=== PATIENT | male | born 1945 | race Caucasian/White ===

== ENCOUNTER 2017-04-29 09:40 | Inpatient (IN) | payer MEDICARE, OTHER ==
[~2017-04-29] VITALS: Ht 167.6 cm; Wt 72.6 kg
--- NOTE | 2017-04-29 09:50 | NUR ---
BIB RA, FOR SEIZURE WITNESSED BY BYSTANDERS. A/A/O. CHANGED TOP GOWN. SIDE RAISL UP. HOB ELEVATED. CONNECTED TO MONITOR. AWAITING EVALUATION BY ER PROVIDER.
[2017-04-29] MEDS ORDERED: PHEN100C4 PO (10:19)
[2017-04-29] MEDS ORDERED: ASPI-1169 PO (10:19)
[2017-04-29 10:26] LABS: BASOPHILS % (AUTO) 0.5 % (0.0-2.0); EOSINOPHILS % (AUTO) 0.9 % (0.0-6.0); HEMATOCRIT 42 % (39-51); HEMOGLOBIN 14.4 g/dL (13.5-17.5); LYMPHOCYTES # (AUTO) 1.3 /CMM (0.8-4.8); LYMPHOCYTES % (AUTO) 26.9 % (20.0-44.0); MEAN CORPUSCULAR HEMOGLOBIN 36 PG (26.0-33.0); MEAN CORPUSCULAR HGB CONC 35 g/dl (31.0-36.0); MEAN CORPUSCULAR VOLUME 104 fL (80-96); MONOCYTES # (AUTO) 0.4 /CMM (0.1-1.30); MONOCYTES % (AUTO) 8.6 % (2.0-12.0); NEUTROPHILS % (AUTO) 63.1 % (43.0-81.0); PLATELET COUNT (AUTO) 158 /CMM (150-450); RDW COEFFICIENT OF VARIATION 13.9 (11.5-15.0); RED BLOOD CELL COUNT(AUTO) 4.01 MIL/uL (4.5-6.0); WHITE BLOOD COUNT (AUTO) 4.8 K/uL (4.3-11.0)
--- NOTE | 2017-04-29 10:35 | NUR ---
URINE COLELCTED AND SEND TO LAB
[2017-04-29 10:38] LABS: INR 0.94 (0.87-1.13)
[2017-04-29 10:41] LABS: CALCIUM, SERUM 8.6 mg/dL (8.5-10.1); CARBON DIOXIDE 27 mmol/L (21-32); CHLORIDE 103 mmol/L (98-107); CREATININE 0.7 mg/dL (0.6-1.3); GLUCOSE 152 mg/dL (74-106); POTASSIUM 3.8 mmol/L (3.5-5.1); SODIUM SERUM 138 mmol/L (136-145); UREA NITROGEN, BLOOD 8 mg/dL (7-18)
[2017-04-29 10:47] LABS: ALANINE AMINOTRANSFERASE 28 U/L (12-78); ALKALINE PHOSPHATASE 94 U/L (46-116); ASPARTATE AMINOTRANSFERASE 29 U/L (15-37); BILIRUBIN,DIRECT 0.1 mg/dL (0.0-0.2); BILIRUBIN,TOTAL 0.4 mg/dL (0.2-1.0); TOTAL PROTEIN, SERUM 7.8 g/dL (6.4-8.2)
[2017-04-29 10:48] LABS: ACETAMINOPHEN < 2 ug/ml (10-30); ALCOHOL, BLOOD < 3 mg/dL (0-0); SALICYLATE 1.4 mg/dL (2.8-20.0)
[2017-04-29 10:58] LABS: APPEARANCE,URINE CLEAR (CLEAR); BILIRUBIN,URINE NEGATIVE (NEGATIVE); BLOOD, URINE TRACE-INTA Ery/uL (NEGATIVE); COLOR,URINE YELLOW (YELLOW); KETONES,URINE TRACE (NEGATIVE); LEUKOCYTE ESTERASE ,URINE NEGATIVE (NEGATIVE); NITRITE, URINE NEGATIVE (NEGATIVE); PROTEIN,URINE NEGATIVE (NEGATIVE); UGLUCOSE NEGATIVE (NEGATIVE); UROBILINOGEN,URINE 0.2 EU/dL (0.2)
[2017-04-29 11:01] LABS: BACTERIA,URINE None seen /HPF (None Seen); RBC,URINE 0-2 /HPF (0-2); WBC,URINE NONE SEEN /HPF (0-3)
[2017-04-29 11:02] LABS: SQUAMOUS EPITHELIAL CELL,UR Few /HPF (None Seen)
--- NOTE | 2017-04-29 12:07 | NUR ---
CALLED NETWORK SERVICES PROJECT MANAGER
--- NOTE | 2017-04-29 12:20 | NUR ---
Patient is resting comfortably in bed with eyes closed. Easily aroused. VSS
[2017-04-29] MEDS ORDERED: LORAZEPAM 1 MG TABLET ONE (13:26)
[2017-04-29] MEDS ORDERED: LORAZEPAM 1 MG TABLET PO ONE (13:30)
--- NOTE | 2017-04-29 13:33 | NUR ---
ART SUPERVISOR PILE DRIVING AT BEDSIDE FOR EVAL
--- NOTE | 2017-04-29 14:25 | NUR ---
Patient is resting comfortably in bed with eyes closed. Easily aroused. VSS
--- NOTE | 2017-04-29 14:53 | NUR ---
REPORT GIVEN TO RAJNI AVINA ROOM 211
--- NOTE | 2017-04-29 14:56 | NUR ---
IV removed. Catheter intact and site benign. Pressure and 4x4 applied to site. No bleeding noted.
[2017-04-29] MEDS ORDERED: TEMAZEPAM 7.5 MG CAPSULE PO PRN (15:30)
[2017-04-29] MEDS ORDERED: LORAZEPAM 0.5 MG TABLET PO PRN (15:30)
[2017-04-29] MEDS ORDERED: MAG HYDROX/AL HYDROX/SIMETH 30 ML UDC PO PRN (15:30)
[2017-04-29] MEDS ORDERED: MAGNESIUM HYDROXIDE 30 ML UDC PO PRN (15:30)
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
[2017-04-29 15:52] VITALS: BP 145/103
[2017-04-29 15:55] VITALS: BP 145/97
[2017-04-29 16:40] VITALS: BP 145/97
[2017-04-29] MEDS: PHENYTOIN EXTENDED RELEASE 100 MG CAPSULE PO SCH (16:56)
[2017-04-29 19:48] VITALS: BP 113/72
[2017-04-29 20:00] VITALS: BP 113/72
[2017-04-30 07:57] LABS: PHENYTOIN (DILANTIN) 3.8 ug/ml (10.0-20.0)
[2017-04-30 08:00] VITALS: BP 124/89
[2017-04-30 08:08] LABS: ALANINE AMINOTRANSFERASE 27 U/L (12-78); ALBUMIN 3.9 g/dL (3.4-5.0); ALKALINE PHOSPHATASE 93 U/L (46-116); ASPARTATE AMINOTRANSFERASE 26 U/L (15-37); BILIRUBIN,TOTAL 0.7 mg/dL (0.2-1.0); CALCIUM, SERUM 8.8 mg/dL (8.5-10.1); CARBON DIOXIDE 27 mmol/L (21-32); CHLORIDE 103 mmol/L (98-107); CREATININE 0.7 mg/dL (0.6-1.3); GLUCOSE 97 mg/dL (74-106); POTASSIUM 4.1 mmol/L (3.5-5.1); SODIUM SERUM 140 mmol/L (136-145); TOTAL PROTEIN, SERUM 7.7 g/dL (6.4-8.2); UREA NITROGEN, BLOOD 11 mg/dL (7-18)
[2017-04-30 08:47] LABS: CHOLESTEROL 287 mg/dL (<200); HDL CHOLESTEROL 156 mg/dL (40-60); LDL 122 mg/dL (0-99); TRIGLYCERIDES 85 mg/dL (30-150)
[2017-04-30] MEDS: PHENYTOIN EXTENDED RELEASE 100 MG CAPSULE PO SCH ×3 (08:56→17:02)
[2017-04-30] MEDS: ASPIRIN 81 MG TAB.CHEW PO SCH (08:57)
--- NOTE | 2017-04-30 10:03 | NUR ---
DR. SANCHEZ ORDERED PET TEAM, PT. WANT TO BE DISCHARGED. KENYA FROM INTAKE NOTIFIED AND SHE WILL CALL THE CLINICIAN TO EVALUATE THE PT.
[2017-04-30] MEDS ORDERED: clonazePAM 0.5 MG TABLET PO PRN (11:00)
--- NOTE | 2017-04-30 12:31 | NUR ---
PT. IS ON [address] NOW [address] SANCHEZ MADE AWARE.
--- NOTE | 2017-04-30 12:37 | NUR ---
Initial Discharge Plan: [place] [address] [facility] [address] by himself. Pt is in a low income residence. Pts # is . Pt would like to return home upon discharge. SW spoke to pts daughter, Marisol for discharge planning purposes. Pts daughter agreed to pick pt up and transport him to his home once he is ready for discharge. Pts daughter also agreed to a higher level of care (i.e. SNF) however stated, "My father is stubborn and probably won't go for the idea." SW will follow up and help pt form a safe and proper discharge.
[2017-04-30] MEDS: NEOMY SULF/BACITRAC ZN/POLY 15 GM TUBE TP SCH (13:03)
[2017-04-30 15:39] VITALS: BP 126/77
[2017-04-30] MEDS: ACETAMINOPHEN 325 MG TABLET PO PRN (18:38)
[2017-04-30 18:57] LABS: APPEARANCE,URINE CLEAR (CLEAR); BILIRUBIN,URINE NEGATIVE (NEGATIVE); BLOOD, URINE NEGATIVE Ery/uL (NEGATIVE); COLOR,URINE YELLOW (YELLOW); KETONES,URINE NEGATIVE (NEGATIVE); LEUKOCYTE ESTERASE ,URINE NEGATIVE (NEGATIVE); NITRITE, URINE NEGATIVE (NEGATIVE); PH,URINE 7.5 (5.0-8.0); PROTEIN,URINE NEGATIVE (NEGATIVE); UGLUCOSE NEGATIVE (NEGATIVE); UROBILINOGEN,URINE 0.2 EU/dL (0.2)
[2017-04-30 20:00] VITALS: BP 113/74
[2017-04-30] MEDS: MIRTAZAPINE 15 MG TABLET PO SCH (20:30)
[2017-05-01] MEDS: PHENYTOIN EXTENDED RELEASE 100 MG CAPSULE PO SCH ×3 (08:11→17:24)
[2017-05-01] MEDS: ASPIRIN 81 MG TAB.CHEW PO SCH (08:11)
[2017-05-01] MEDS: NEOMY SULF/BACITRAC ZN/POLY 15 GM TUBE TP SCH (08:11)
[2017-05-01 08:16] VITALS: BP 115/72
[2017-05-01 08:17] VITALS: BP 115/72
[2017-05-01 16:00] VITALS: BP 125/80
[2017-05-01 20:00] VITALS: BP 108/68
[2017-05-01] MEDS: MIRTAZAPINE 15 MG TABLET PO SCH (20:18)
[2017-05-02 08:00] VITALS: BP 125/78
[2017-05-02] MEDS: ASPIRIN 81 MG TAB.CHEW PO SCH (08:12)
[2017-05-02] MEDS: PHENYTOIN EXTENDED RELEASE 100 MG CAPSULE PO SCH ×3 (08:13→16:29)
[2017-05-02] MEDS: NEOMY SULF/BACITRAC ZN/POLY 15 GM TUBE TP SCH (08:23)
--- NOTE | 2017-05-02 13:10 | NUR ---
Received pt. in the dining room, interacting to peer and with depressed mood. Compliant on meds, no distress and no agitation noted. Will continue to monitor for safety.
[2017-05-02 16:00] VITALS: BP 131/81
--- NOTE | 2017-05-02 19:30 | NUR ---
GPS RN NOTE, RECEIVED PATIENT AWAKE AND IN BED, NO S/S OR COMPLAINTS OF PAIN AT THIS TIME. PATIENT IS DISPLAYING NO S/S OF APPARENT DISTRESS AT THIS TIME. PATIENT BREATHING IS UNLABORED WITH EQUAL RISE AND FALL OF THE CHEST. PATIENT IS ALERT AND ORIENTED X2 ON ROOM AIR WITH A SPO2 OF 98 %. PATIENT IS MED COMPLAINT, DISORGANIZED, ANXIOUS, AND NEEDS REORIENTATION. PATIENT DENIES SUICIDE IDEATIONS AND HOMICIDAL IDEATIONS AT THIS TIME. PATIENT ASSISTED WITH TURNING AND REPOSITIONING Q2HR AND PRN FOR COMFORT AND CIRCULATION. PATIENT HAS NO NEEDS AT THIS TIME. PATIENT EDUCATED ON THE USE OF THE CALL THACKER. PATIENT SIDE RAILS ARE UP X 2, BED IS LOCKED AND LOW, AND I WILL CONTINUE TO MONITOR THIS PATIENT Q 15 MIN WITH THE HELP OF STAFF.
[2017-05-02 20:01] VITALS: BP 132/81
[2017-05-02] MEDS: MIRTAZAPINE 15 MG TABLET PO SCH (20:49)
[2017-05-02] MEDS: ACETAMINOPHEN 325 MG TABLET PO PRN (20:49)
--- NOTE | 2017-05-02 20:49 | NUR ---
GPS RN NOTE, PATIENT HAS A COMPLAINT OF A HEAD ACHE AT 2 OUT 10 ON THE PAIN SCALE AND IS REQUESTING TYLENOL. PATIENT VITAL SIGNS ARE STABLE. GAVE TYLENOL 650 MG PO Q6HR PRN ORDERED. WILL REASSESS FOR PAIN AND I WILL CONTINUE TO MONITOR THIS PATIENT.
--- NOTE | 2017-05-03 07:37 | NUR ---
WOUND CARE CONSULT WOUND CARE RECEIVED CONSULT. WOUND CARE WILL DEFER CONSULT AND TREATMENT PLAN TO SURGICAL TEAM WHO ARE FOLLOWING AT THIS TIME. PATIENT WITH SULMA AT 23.
[2017-05-03 08:00] VITALS: BP 118/78
[2017-05-03] MEDS: ASPIRIN 81 MG TAB.CHEW PO SCH (08:00)
[2017-05-03] MEDS: PHENYTOIN EXTENDED RELEASE 100 MG CAPSULE PO SCH ×3 (08:00→16:39)
[2017-05-03] MEDS: NEOMY SULF/BACITRAC ZN/POLY 15 GM TUBE TP SCH (08:00)
[2017-05-03 16:00] VITALS: BP 140/86
--- NOTE | 2017-05-03 19:30 | NUR ---
GPS RN NOTE, RECEIVED PATIENT AWAKE AND IN BED, NO S/S OR COMPLAINTS OF PAIN AT THIS TIME. PATIENT IS DISPLAYING NO S/S OF APPARENT DISTRESS AT THIS TIME. PATIENT BREATHING IS UNLABORED WITH EQUAL RISE AND FALL OF THE CHEST. PATIENT IS ALERT AND ORIENTED X2 ON ROOM AIR WITH A SPO2 OF 98 %. PATIENT HAS SON AT BEDSIDE. PATIENT IS MED COMPLAINT, DISORGANIZED, ANXIOUS, AND NEEDS REORIENTATION. PATIENT DENIES SUICIDE IDEATIONS AND HOMICIDAL IDEATIONS AT THIS TIME. PATIENT ASSISTED WITH TURNING AND REPOSITIONING Q2HR AND PRN FOR COMFORT AND CIRCULATION. PATIENT HAS NO NEEDS AT THIS TIME. PATIENT EDUCATED ON THE USE OF THE CALL THACKER. PATIENT SIDE RAILS ARE UP X 2, BED IS LOCKED AND LOW, AND I WILL CONTINUE TO MONITOR THIS PATIENT Q 15 MIN WITH THE HELP OF STAFF.
[2017-05-03 20:01] VITALS: BP 121/96
[2017-05-03] MEDS: MIRTAZAPINE 15 MG TABLET PO SCH (20:39)
[2017-05-04 08:00] VITALS: BP 109/82
[2017-05-04] MEDS: NEOMY SULF/BACITRAC ZN/POLY 15 GM TUBE TP SCH (09:29)
[2017-05-04] MEDS: PHENYTOIN EXTENDED RELEASE 100 MG CAPSULE PO SCH ×3 (09:29→17:00)
[2017-05-04] MEDS: ASPIRIN 81 MG TAB.CHEW PO SCH (09:29)
--- NOTE | 2017-05-04 12:41 | NUR ---
Discharge Planning: Pts hold was lifted and therefore can return home on this date. JASON contacted pts friend Familia for discharge planning purposes. Per pt he would like for his friend to pick him up from the hospital. SW contacted pts friend however was unable to speak with him. SW left a detailed message asking for a call back. SW will follow up to ensure pt is safely and properly discharged.
--- NOTE | 2017-05-04 13:00 | NUR ---
RN-CO: Probable cause hearing was done today,Freedom Martinez (ethics officer) ordered to discontinue hold and discharge patient today because there is no probable cause to hold the patient her will. Dr Grimaldo made aware and ordered to discontinued hold and discharge patient today. Family is aware, prescription was called to [facility] [id number] [place] [address] .Dr Camilo Miramontes medically cleared her for discharge.
--- NOTE | 2017-05-04 14:56 | NUR ---
RN-CO: Discharge papers was discussed to the patient and he verbalized understanding.
[2017-05-04 16:07] VITALS: BP 131/70
--- NOTE | 2017-05-04 16:35 | NUR ---
RN-CO: Patient was picked up by daughter Pauline , all belongings and valuables was given back to the patient and daughter. prescription was discussed to them and verbalized understanding, and was called to pharmacy of choice. Exit care was also discussed.
--- NOTE | 2017-05-04 18:43 | NUR ---
GPS CATH LAB NURSE DISCHARGE NOTE, PATIENT WAS PICKED UP BY RAJNI (DAUGHTER) AT 1650 HRS. NOTIFIED PRESCRIPTION MEDICATION WOULD BE READY AT [facility] [address] [facility] [address]. [phone].
--- NOTE | 2017-05-05 09:39 | NUR ---
Discharge Planning: JASON received a call from pts daughter Jolene who stated that pts son, Clifford was not able to make the 4pm steel pickler due to "being stuck in traffic." Per Jolene, pts other daughter Pauline would be coming to pick pt up at 4pm. JASON informed pt of the changes and inquired if it was okay; which he agreed. JASON informed nursing staff of the changes, RE: who was to pick pt up on this date.
--- NOTE | 2017-05-05 09:46 | NUR ---
Discharge Note: Patient will be discharged home, [address] [facility] [address]; via private transportation at 4:00 pm. Pt was picked up by Marisol, his daughter who (contact center assistant Jolene Terrell [phone]). Pt was informed and in agreement. Pt was referred to Dr. Everton Bennett, [address] [facility]. [facility] [address]; , industrial refrigeration mechanic and [facility] [id number] [place] [id number]; for psychiatric services.
== END 2017-05-04 17:52 | disposition home or self-care (01) | DRG 885 ==
LOC: ER 09:41 → GPS 14:22
PROVIDERS: ADMIT Psychiatry & Neurology Psychosomatic Medicine; ATTEND Internal Medicine
DX: F33.2 Major depressive disorder, recurrent severe without psychotic features (principal); I62.03 Nontraumatic chronic subdural hemorrhage; G40.909 Epilepsy, unspecified, not intractable, without status epilepticus; R45.851 Suicidal ideations; Z91.19 Patient's noncompliance with other medical treatment and regimen; W19.XXXA Unspecified fall, initial encounter; E66.3 Overweight; Z68.25 Body mass index [BMI] 25.0-25.9, adult; S00.01XA Abrasion of scalp, initial encounter; Y93.9 Activity, unspecified; Y92.410 Unspecified street and highway as the place of occurrence of the external cause; Z72.89 Other problems related to lifestyle; F09 Unspecified mental disorder due to known physiological condition; D18.1 Lymphangioma, any site
CPT/HCPCS: 36415; 70450-TC; 71045-TC; 80048-TC; 80053-TC; 80061-TC; 80076-TC; 80185-TC; 80305; 81000-TC; 85025-TC; 85730-TC; 87081-TC; 87086-TC; A4606; G0480; Z7610

== ENCOUNTER 2021-11-03 10:19 | Emergency (ER) | payer MEDICARE, OTHER ==
[~2021-11-03] VITALS: Ht 167.6 cm; Wt 73.5 kg
[~2021-11-03 10:19] MED LIST: ASPI-1169 PO; PHEN100C4 PO
--- NOTE | 2021-11-03 10:20 | NUR ---
RECEIVED PT 76 YRS MALE OLD MALE CAME FROM STORE S/P SEIZURE AWAKE AND ALERT RESPIRATION SPONT AND EASY
[2021-11-03] MEDS ORDERED: LEVETIRACETAM (500MG) 500 MG in IV NS 0.9% 100 ML IV ONE (10:30)
--- NOTE | 2021-11-03 10:30 | NUR ---
INSERTED ANGO CATH # [id number] ON RT AC BLOOD DROW AND SENT TO LAB
[2021-11-03 10:47] LABS: BASOPHILS # (AUTO) 0.1 K/uL (0.0-0.2); EOSINOPHILS % (AUTO) 1.3 % (0.0-6.0); HEMATOCRIT 34 % (39-51); HEMOGLOBIN 11.2 g/dL (13.5-17.5); LYMPHOCYTES # (AUTO) 1.1 K/uL (0.8-4.8); LYMPHOCYTES % (AUTO) 19.7 % (20.0-44.0); MEAN CORPUSCULAR HGB CONC 33 g/dl (31.0-36.0); MEAN CORPUSCULAR VOLUME 94 fL (80-96); MONOCYTES # (AUTO) 0.5 K/uL (0.1-1.30); MONOCYTES % (AUTO) 9.8 % (2.0-12.0); NEUTROPHILS # (AUTO) 3.8 K/uL (1.8-8.9); NEUTROPHILS % (AUTO) 68.2 % (43.0-81.0); PLATELET COUNT (AUTO) 201 K/uL (150-450); RED BLOOD CELL COUNT(AUTO) 3.61 MIL/uL (4.5-6.0); WHITE BLOOD COUNT (AUTO) 5.5 K/uL (4.3-11.0)
--- NOTE | 2021-11-03 10:47 | NUR ---
TO CT SCAN OF HEAD
[2021-11-03 11:02] LABS: CALCIUM, SERUM 8.7 mg/dL (8.5-10.1); CARBON DIOXIDE 31 mmol/L (21-32); CHLORIDE 103 mmol/L (98-107); CREATININE 0.8 mg/dL (0.6-1.3); GLUCOSE 120 mg/dL (74-106); POTASSIUM 3.8 mmol/L (3.5-5.1); SODIUM SERUM 139 mmol/L (136-145); UREA NITROGEN, BLOOD 12 mg/dL (7-18)
[2021-11-03] MEDS ORDERED: MULT-1244 PO (11:03)
[2021-11-03] MEDS ORDERED: TAMS-12 PO (11:03)
[2021-11-03 11:08] LABS: ALANINE AMINOTRANSFERASE 25 U/L (12-78); ALKALINE PHOSPHATASE 84 U/L (46-116); ASPARTATE AMINOTRANSFERASE 23 U/L (15-37); BILIRUBIN,DIRECT 0.1 mg/dL (0.0-0.2); BILIRUBIN,TOTAL 0.3 mg/dL (0.2-1.0); TOTAL PROTEIN, SERUM 7.3 g/dL (6.4-8.2)
[2021-11-03] MEDS ORDERED: LEVE500T9 PO (11:09)
[2021-11-03 11:15] LABS: ALCOHOL, BLOOD < 3 mg/dL (0-0)
--- NOTE | 2021-11-03 11:37 | NUR ---
NO ACTIVE SEIZURE
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
--- NOTE | 2021-11-03 12:05 | NUR ---
PT OK GOOD TO GO HOME WITH BUS
[2021-11-03 12:08] VITALS: BP 133/82
--- NOTE | 2021-11-03 12:10 | NUR ---
PT WALKING WITH STADY GAIT
== END 2021-11-03 12:49 | disposition home or self-care (01) ==
LOC: ER 10:24
DX: G40.909 Epilepsy, unspecified, not intractable, without status epilepticus (principal); Z86.69 Personal history of other diseases of the nervous system and sense organs; Z79.899 Other long term (current) drug therapy
CPT/HCPCS: 99285; 96365; 70450; 85025; 80048; 80185; 80076; 36415; 80320; J7030; J1953; G0480